=== PATIENT | male | born 1960 | race Asian ===

== ENCOUNTER 2023-11-20 10:06 | Observation (INO) | payer BC, OTHER ==
[2023-11-20] MEDS ORDERED: dilTIAZem HCL 125 MG/25 ML - 25 ML VIAL ONE (10:23)
[2023-11-20] MEDS ORDERED: CALCIUM GLUCONATE 10% - 1,000 MG/10 ML VIAL ONE (10:26)
[2023-11-20 10:47] LABS: BASO % 0.5 % (0-2.0); EOS % 0.2 % (0-4.5); HEMATOCRIT 47.7 % (35.4-49); HEMOGLOBIN 15.6 GM/dL (11.7-16.9); LYMPH % 18.5 % (8-40); MCH 27.7 pg (25.7-33.7); MCHC 32.8 g/dl (32.0-35.9); MEAN CELL VOLUME 84.5 fl (80-96); MEAN PLT VOLUME 11.3 fl (7.5-11.1); MONO % 7.9 % (3.8-10.2); NEUT % 72.9 % (42.8-82.8); PLATELET COUNT 231 10^3/uL (134-434); RBC 5.64 M/mm3 (4.00-5.60); RDW 13.4 % (11.9-15.9); WHITE BLOOD COUNT 11.8 K/mm3 (4.0-10.0)
[2023-11-20] MEDS: SODIUM CHLORIDE 1,000 ML IV STA ×2 (10:49→11:28)
[2023-11-20] MEDS: dilTIAZem HCL 50 MG/10 ML - 10 ML VIAL IVPUSH ONE ×2 (10:49→14:25)
[2023-11-20] MEDS: CALCIUM GLUCONATE 10% - 1,000 MG/10 ML VIAL IVPB ONE (10:49)
[2023-11-20 11:00] LABS: INR 1.07 (0.83-1.09); PROTHROMBIN TIME (PATIENT) 12.4 SEC (9.7-13.0)
[2023-11-20 11:07] LABS: POTASSIUM 4.2 mmol/L (3.5-5.1)
[2023-11-20 11:09] LABS: CALCIUM 8.7 mg/dL (8.5-10.1)
[2023-11-20 11:10] LABS: ALBUMIN 3.6 g/dl (3.4-5.0); BLOOD UREA NITROGEN 12.5 mg/dL (7-18)
[2023-11-20 11:14] LABS: CREATININE 1.2 mg/dL (0.55-1.3)
[2023-11-20 11:15] LABS: TOT PROT 7.5 g/dl (6.4-8.2)
[2023-11-20] MEDS ORDERED: dilTIAZem HCL 30 MG TABLET ONE (11:31)
[2023-11-20] MEDS: dilTIAZem HCL 30 MG TABLET PO ONE (11:33)
[2023-11-20] MEDS ORDERED: FUROSEMIDE 40 MG/4 ML INJECTABLE VIAL ONE (11:56)
[2023-11-20] MEDS: FUROSEMIDE 40 MG/4 ML INJECTABLE VIAL IVPUSH ONE ×2 (12:04→12:36)
[2023-11-20] MEDS ORDERED: dilTIAZem HCL 50 MG/10 ML - 10 ML VIAL ONE (12:28)
[2023-11-20] MEDS ORDERED: ASPIRIN 81 MG CHEWABLE TABLETS ONE (12:48)
[2023-11-20] MEDS: ASPIRIN 81 MG CHEWABLE TABLETS PO ONE (12:51)
[2023-11-20 16:12] VITALS: BMI 30.6
[2023-11-20 16:22] LABS: N-TERMINAL BNP 1259.4 pg/ml (5-125)
[2023-11-20] MEDS: METOPROLOL TARTRATE 25 MG TABLET (FP) PO SCH (16:27)
[2023-11-21 08:36] LABS: BASO % 0.3 % (0-2.0); EOS % 0.1 % (0-4.5); HEMATOCRIT 46.1 % (35.4-49); LYMPH % 13.5 % (8-40); MCH 27.6 pg (25.7-33.7); MCHC 32.5 g/dl (32.0-35.9); MEAN CELL VOLUME 84.8 fl (80-96); MEAN PLT VOLUME 11.3 fl (7.5-11.1); MONO % 8.9 % (3.8-10.2); NEUT % 77.2 % (42.8-82.8); PLATELET COUNT 193 10^3/uL (134-434); RBC 5.44 M/mm3 (4.00-5.60); RDW 13.2 % (11.9-15.9); WHITE BLOOD COUNT 12.6 K/mm3 (4.0-10.0)
[2023-11-21 09:00] LABS: POTASSIUM 4.2 mmol/L (3.5-5.1)
[2023-11-21 09:03] LABS: MAGNESIUM 2.1 mg/dL (1.8-2.4)
[2023-11-21 09:07] LABS: ALBUMIN 3.3 g/dl (3.4-5.0)
[2023-11-21 09:08] LABS: BLOOD UREA NITROGEN 16.3 mg/dL (7-18)
[2023-11-21 09:09] LABS: CREATININE 1.1 mg/dL (0.55-1.3); PHOSPHOROUS 3.2 mg/dL (2.5-4.9)
[2023-11-21 09:12] LABS: BILIRUBIN,TOTAL 1.3 mg/dL (0.2-1)
[2023-11-21] MEDS ORDERED: ASPIRIN 81 MG CHEWABLE TABLETS PO SCH (10:00)
[2023-11-21] MEDS ORDERED: FUROSEMIDE 40 MG/4 ML INJECTABLE VIAL IVPUSH SCH (10:00)
[2023-11-21] MEDS: LOSARTAN POTASSIUM 25 MG TABLET PO SCH (11:30)
[2023-11-21] MEDS: FUROSEMIDE 40 MG/4 ML INJECTABLE VIAL IVPUSH SCH (11:31)
[2023-11-21] MEDS: ENOXAPARIN NA (PORCINE) 40 MG/0.4 ML DISP.SYRIN SQ SCH (11:31)
[2023-11-21] MEDS: metoPROLOL SUCCINATE 25 MG TAB.SR.24H (FP) PO SCH (11:31)
[2023-11-21] MEDS: ASPIRIN COATED 81 MG TABLET.EC PO SCH (11:31)
[2023-11-21 12:51] VITALS: BP 114/66; PULSE 80; RESP 18; TEMP 99.1
== END 2023-11-21 13:05 | disposition home or self-care (01) ==
LOC: JER 10:06 → UNDOADMOB 14:00 → JERBED 14:00 → INTOOBSV 14:00 → J4W 15:51 → JERBED 15:51 → J4W 11-21 09:21
PROVIDERS: ADMIT Internal Medicine; ATTEND Internal Medicine
PROC: 3E033GC Introduction of Other Therapeutic Substance into Peripheral Vein, Percutaneous Approach (ICD-10-PCS; principal; 2023-11-21)
PROC: 3E023GC Introduction of Other Therapeutic Substance into Muscle, Percutaneous Approach (ICD-10-PCS; 2023-11-21)
PROC: 3E0337Z Introduction of Electrolytic and Water Balance Substance into Peripheral Vein, Percutaneous Approach (ICD-10-PCS; 2023-11-21)
DX: J96.01 Acute respiratory failure with hypoxia (principal); I50.31 Acute diastolic (congestive) heart failure; I48.91 Unspecified atrial fibrillation; I11.0 Hypertensive heart disease with heart failure
CPT/HCPCS: 0241U-QW; 36415; 71045-TC-FY; 80053; 80061; 83036; 83735; 83880; 84100; 84439; 84443; 84479; 84484; 85025; 85610; 93005; 93010; 93306-TC; 96361; 96372; 96374; 96375; 96376; 99291; G0378